=== PATIENT | male | born 2000 | race Caucasian/White ===

== ENCOUNTER → 2025-03-20 12:07 | Outpatient (REF) | payer OTHER, SELFPAY | LOC: RAD 12:07 | PROVIDERS: ATTENDING PHYSICIAN Family Medicine | DX: S93.409A Sprain of unspecified ligament of unspecified ankle, initial encounter (principal) | CPT/HCPCS: 73600 ==

== ENCOUNTER 2025-08-22 17:16 | Emergency (ER) | payer OTHER, SELFPAY ==
[2025-08-22 17:19] VITALS: BP 120/95
[2025-08-22 17:25] VITALS: BP 122/73
[2025-08-22 18:07] LABS: COVID-19 Antigen Negative (Negative)
[2025-08-22 18:50] VITALS: BMI 20.1
[2025-08-22 18:51] VITALS: BP 141/82
--- NOTE | 2025-08-22 19:18 | ED.GENMED ---
History of Present Illness
General
Chief Complaint: Cold/Flu/URI Symptoms
Time Seen by Provider: 08/22/25 19:02
History of Present Illness
History of Present Illness:
25-year-old otherwise healthy male presents to the emergency department for evaluation of flulike symptoms with fever, nausea, body aches, coughing, and rhinorrhea developing late last night and worsening today. No vomiting or diarrhea. No known
ill contacts. Last took acetaminophen approximately 6 hours ago
Past History
Past History
ED Past Medical History: Psychiatric (ADHD, depression) and Other (Gastroenteritis); Negative Asthma, HTN, Hypercholesterolemia or NIDDM
ED Past Surgical History: None
Social History
Tobacco: Smoker
Alcohol: Occasional
Drug: Marijuana
Personal: Single
Living: with family
Employment: Student
Family History
Family History: Other (Uncontributory)
Review of Systems
Review of Systems
Allergies reviewed?: Yes
All Other Systems: ROS reviewed and negative except as documented in HPI and ROS
Phy Exam
Physical Exam
Physical Exam:
GEN: Well appearing, NAD, WDWN
HEENT: Oral mucosa moist, no scleral icterus, TMs clear bilaterally with no erythema, oropharynx clear with no erythema or exudates
Cardiac: Regular rate and rhythm, no murmurs
Lung: No respiratory distress, no tachypnea, lungs clear to auscultation
MSK: No gross deformity or injuries
Skin: Good color, no pallor or jaundice, no rashes
Neuro: AO x3, moves all extremities freely
Psych: Calm, cooperative
Sepsis
Sepsis Screening
Sepsis Assessment: Sepsis Ruled Out
Sepsis Screen
Sepsis Screen: Sepsis Ruled Out
Date: 08/22/25
Time: 23:38
Course
Orders/Labs/Results
Orders:
Orders
08/22/25 17:35
COVID-19 Antigen Urgent
Source: Nasal Swab
Influenza A+B Rapid Molecular Urgent
QUENTIN Source: Nasal Swab
Specimen Description:
Vital Signs
Initial and Last Documented VS:
Initial Vital Signs
Temp Pulse Resp BP Pulse Ox
99.9 F 76 20 120/95 94
08/22/25 17:19 08/22/25 17:19 08/22/25 17:19 08/22/25 17:19 08/22/25 17:19
Last Documented Vital Signs
Temp Pulse Resp BP Pulse Ox
101.1 F H 87 16 141/82 100
08/22/25 17:25 08/22/25 18:51 08/22/25 18:51 08/22/25 18:51 08/22/25 19:18
MDM/Problems Addressed
MDM/Problems Addressed:
Patient is clinically well-appearing with viral symptoms, vital signs within normal limits. Likely flulike syndrome, lungs clear to auscultation no indication for chest x-ray. Discussed supportive care
*Pulse Oximetry
SaO2: 100
Oxygen Mode of Delivery: Room air
Patient hypoxic: no
*Critical Care Note
Total Time (30-74mins, 75-104mins- exclusive of procedures): Not Applicable
ED Attending Note
-
Portions of this chart may have been created with voice recognition software.� Occasional wrong word or��sound alike� substitutions may have occurred due to the inherent limitations of voice recognition software.
Discharge Plan
Departure
Patient Disposition: Home (Routine Discharge)
Date of Disposition: 08/22/25
Time of Disposition: 19:25
Patient with high blood pressure during this ER visit?: No
Discharge Problem:
Upper respiratory infection, viral
Instructions: Viral Upper Respiratory Infection, Adult (DC)
Prescriptions:
No Action
oxycodone-acetaminophen 5 MG/325 MG tablet
1 tab PO Q6HPRN PRN (Reason: moderate pain) Qty: 10 0RF
ibuprofen 600 MG tablet
600 mg PO QIDPRN PRN (Reason: pain) Qty: 30 0RF
Referrals:
Peng English MD [Family Provider, Family Practice]
Stand Alone Forms: Return to Work
Interventions
Interventions:
*General Assessment Last Done: 08/22/25 17:25
*Neglect/Abuse Screening Last Done: 08/22/25 18:53
*ED COVID-19 Vaccine History Last Done: 08/22/25 17:25
*ED Influenza Vaccine History Last Done: 08/22/25 17:25
[facility] Fall Risk Assessment Tool Last Done: 08/22/25 18:51
*Risk Screen - Suicide (C-SSRS) Last Done: 08/22/25 17:25
*Nursing Disposition Last Done: 08/22/25 19:31
ED- Pulmonary Assessment Last Done: 08/22/25 18:53
Discharge Date and Time
Discharge Date/Time: 08/22/25 19:32
Print Language: OMANI
== END 2025-08-22 19:32 | disposition home or self-care (01) ==
LOC: EMR 17:16
PROVIDERS: Emergency Medicine; EMERGENCY PHYSICIAN Emergency Medicine; FAMILY PHYSICIAN Family Medicine
DX: J11.1 Influenza due to unidentified influenza virus with other respiratory manifestations (principal); R11.0 Nausea; Z11.52 Encounter for screening for COVID-19; F90.9 Attention-deficit hyperactivity disorder, unspecified type; F32.A Depression, unspecified; F17.200 Nicotine dependence, unspecified, uncomplicated
CPT/HCPCS: 99283; 87502; 87811